=== PATIENT | male | born 1975 | race Hispanic/Latino ===

== ENCOUNTER → 2019-11-23 14:56 | Outpatient (CLI) | payer OTHER, SELFPAY ==
[2019-11-26 15:46] LABS: COVID19 Sendout Not Detected (Not Detect)
== END ==
PROVIDERS: PCP Family Medicine; Visit Provider Physician Assistant
DX: Z11.59 Encounter for screening for other viral diseases (principal)
CPT/HCPCS: 87635

== ENCOUNTER 2019-11-26 09:29 | Day surgery (SDC) | payer OTHER, SELFPAY ==
[2019-11-26] VITALS (7 sets, daily range): BP systolic 95–125; BP diastolic 54–77; PULSE 67–82; RESP 11–16; TEMP 36.6–36.9; O2SAT 95–99; BMI 25.2
[2019-11-26] MEDS: LACTATED RINGERS 1,000 ML 200 ML IV (09:45)
--- NOTE | 2019-11-26 10:15 | PM.HP.1 ---
History of Present Illness History of Present Illness Date Patient Seen: 11/26/19 Time Patient Seen: 10:15 Chief complaint: SDC Narrative: The patient is a gentleman whose father of colon cancer at age 47. He is here for a screening exam. His last exam was 5 years ago. This is his 3rd colonoscopy. Patient History Surgical History (Updated 11/26/19 @ 10:16 by Omid Childs MD) Status post inguinal hernia repair (Acute) Family & Social History Social History: household members spouse Tobacco & Substance use: Smoking Status Never smoker alcohol intake never Substance Use Type does not use Meds Home Medications and Allergies Home Medications Medication Instructions Recorded Confirmed Type ibuprofen 600 mg PO PRN PRN #0 04/18/16 History lidocaine 1 tino TOPICAL TID #30 gm 04/18/16 11/26/19 Rx gabapentin [Neurontin] 300 mg PO TID #90 cap 07/15/16 Rx Allergies Allergy/AdvReac Type Severity Reaction Status Date / Time No Known Allergies Allergy Verified 11/26/19 07:35 Review of Systems Review of Systems Narrative: He has had 2 urinary tract infections in the past. He is otherwise healthy. ROS: Yes All systems reviewed with the patient and are negative except as otherwise documented Exam Vital Signs (past 8 hours): - 11/26/19 10:04 Temperature 98.4 F Pulse Rate 82 Respiratory Rate 14 Blood Pressure 125/77 Pulse Oximetry 99 Oxygen Delivery Method Room Air Narrative Exam Narrative: Pleasant cooperative patient no apparent distress. Lungs are clear to auscultation. No rales or rhonchi. Heart regular rate and rhythm no murmur gallop. Abdomen is soft nontender without mass. No obvious hernias. Patient is alert and oriented x3. Assessment & Plan Assessment & Plan narrative: The patient for a screening colonoscopy. I have discussed the procedure with them. Risks of bleeding, perforation which would necessitate major operation, failure to find remove all lesions, the potential tattoo were all discussed. All questions were answered. They wished to proceed.
--- NOTE | 2019-11-26 10:16 | PM.PREOP ---
Pre-operative Note COVID-19 COVID-19 status: Negative Result date/Date tested (Pos, Neg/Pending): 11/26/19 Interval Note History & Physical reviewed/Exam performed by Physician: Yes Changes to H&P: No ASA Class (for procedural sedation): I
[2019-11-26 10:21] LABS: COVID19 -Nasal RAPID Negative (Negative)
[2019-11-26] MEDS: MIDAZOLAM 5 MG/5 ML VIAL IV (10:47)
[2019-11-26] MEDS: fentaNYL 250 MCG/5 ML INJ IV (10:48)
--- NOTE | 2019-11-26 11:10 | PM.OP.ENDO ---
Operative Date/Time/Diagnoses Date of procedure: 11/26/19 Time of procedure: 11:10 Pre-op diagnosis: Father with colon cancer at age 47. Here for screening exam. This is his 3rd colonoscopy. Last exam was 5 years ago. Post-op diagnosis: same (Normal exam) Procedure & Clinicians Study performed: Colonoscopy Same procedure as scheduled: Yes Indications: Screening Surgeon: Omid Childs Procedure Notes SCOAP/Timeout: Performed Procedure in detail: The patient was placed in the left lateral decubitus position and underwent IV sedation directed by the surgeon consisting of fentanyl and Versed. Digital exam was unremarkable. Prostate is normal in size.. The scope was inserted and advanced through the rectum into the sigmoid, descending, transverse, and ascending colon. The patient had a lot of fluid in the colon but I was able to suck it out. He also had a rather elongated tortuous colon and we had to reposition him, insert a stiffener and apply pressure to his abdominal wall to reach the cecum. The cecum was reached identified by the ileocecal valve and the appendiceal opening. The scope was gradually brought out. No Polyps were found. The scope ultimately was retroflexed in the rectum. The appearance was normal. The scope was removed and the patient tolerated the procedure well. All the prep was ultimately good. Scope withdrawal time: 8 minutes Sedation minutes: 37 Specimen(s): none sent Complications: none Post-procedure Recommendations: Colonscopy in 5 years (Due to family history) Follow up: as needed Disposition: PACU
== END 2019-11-26 12:00 | disposition home or self-care (01) ==
PROVIDERS: PCP Family Medicine; Referring Provider Family Medicine; Visit Provider Specialist
PROC: 0DJD8ZZ Inspection of Lower Intestinal Tract, Via Natural or Artificial Opening Endoscopic (ICD-10-PCS; CPT 45378; principal; 2019-11-26 10:45)
DX: Z12.11 Encounter for screening for malignant neoplasm of colon (principal); Z80.0 Family history of malignant neoplasm of digestive organs; Z11.59 Encounter for screening for other viral diseases
CPT/HCPCS: 45378; 87635; 99152; 99153; J2250; J3010

== ENCOUNTER → 2021-02-01 09:04 | Outpatient (CLI) | payer OTHER, SELFPAY ==
[2021-02-01 12:01] LABS: COVID19 -Nasal RAPID Negative (Negative)
== END ==
PROVIDERS: PCP Family Medicine; Visit Provider Physician Assistant
DX: Z01.812 Encounter for preprocedural laboratory examination (principal); Z20.822 Contact with and (suspected) exposure to COVID-19
CPT/HCPCS: 87635

== ENCOUNTER 2021-02-04 09:07 | Day surgery (SDC) | payer OTHER, SELFPAY ==
[2021-01-28 10:52] VITALS: BMI 26.6
[2021-02-04] VITALS (7 sets, daily range): BP systolic 125–144; BP diastolic 78–96; PULSE 64–77; RESP 12–19; TEMP 35.9–36.9; O2SAT 98–100; BMI 26.6
--- NOTE | 2021-02-04 | PATH_ITS ---
[facility] Accession Number: [id number] . 01 Material submitted: . foreskin - FORESKIN . 01 Diagnosis: Foreskin, Circumcision: Patchy lichenoid dermatitis with areas of superficial collagen homogenization and dilated blood vessels; see comment. MRV 02/10/2021 0932 Local . 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 A PAS fungal stain performed on block A1 is negative for fungal organisms. Clinical correlation is recommended. . 01 Electronically signed: . Camilo Pereira MD, Dermatopathologist NPI- [id number] . 01 Gross description: . The specimen is received in formalin, labeled foreskin and consists of a 5.0 x 3.0 x 2.5 cm al wrinkled skin. The margin is inked blue and artist representative sections are submitted in cassettes A1-A2. ([id number]) /MRV 02/05/2021 1500 Local . 01 Pathologist provided ICD-10: L90.0 . 01 CPT . 781474, [id number] Performed at: 01 [facility] [address] [place] [address], [place], [place] [id number] MD Bandar Moran MD Phone: [phone]
[2021-02-04] MEDS: LACTATED RINGERS 1,000 ML 42 ML IV ×2 (09:38→10:53)
--- NOTE | 2021-02-04 09:54 | PM.PREOP ---
Pre-operative Note COVID-19 COVID-19 status: Negative Result date/Date tested (Pos, Neg/Pending): 02/01/21 Interval Note History & Physical reviewed/Exam performed by Physician: Yes Changes to H&P: No
[2021-02-04] MEDS: CEFAZOLIN 1 GM VIAL 2 GM IV (10:00)
--- NOTE | 2021-02-04 10:29 | SUR.OPER ---
Supine on padded OR bed, head on pillow, arms secured on padded arm boards at <90 degrees abduction, legs uncrossed, safety belt at thigh, tape over blanket over lower legs.
[2021-02-04] MEDS: BACITRACIN 28 GM OINT 1 APPLIC TOP (10:35)
[2021-02-04] MEDS: BUPIVACAINE 0.25% (PF) VIAL 30 ML INJ (10:35)
--- NOTE | 2021-02-04 11:05 | PM.OP.1 ---
Procedure & Clinicians Procedure: Circumcision Same procedure as scheduled: Yes Indications: This is a very pleasant 45-year-old male who came with complaint of abnormalities of the foreskin he was found to have phimosis. Also history of balanitis. He also has Mild Bx so at the meatus. Because the phimosis and balanitis he presents this time for circumcision. Surgeon: Chuy Helm Click Yes if Unassisted: Yes Anesthesia Type: General Operative Notes Findings: Patient has a tight 5 Modic ring which is blanched and scar with no cracking today. He has blanching around the meatus consistent with Bx 0. No other abnormalities noted. Closure Type: primary Specimen(s): other (Foreskin) Prosthetic devices, grafts, tissues, transplants, or devices: None Estimated Blood Loss (mL): 10 Blood products transfused: none Procedure in detail: Procedure in detail: After informed consent was obtained, patient was identified and brought to the operating room for a was placed in a supine position on the table. After being placed on the operative table anesthesia was induced and maintained. Patient was then shaved, prepped, draped and prepared for circumcision in a sterile fashion. After prepping, draping and ensuring an adequate level of anesthesia the line of circumcision on the sac scan was marked with a pen the foreskin was retracted and the subcoronal line of incision was marked and incised circumferentially. The foreskin was then and the shaft skin was incised. Obvious blood vessels were controlled with electrocautery. The dorsal midline the sleeve of skin was undermined from the coronal incision to the shaft incision. The skin was then removed the sleeve of skin was then removed with electrocautery. Points of bleeding were controlled with electrocautery. Skin edges were then reapproximated with interrupted 3-0 chromic gut suture. Skin was infiltrated with 0.25% Marcaine circumferentially dressings Xeroform bacitracin were applied. Patient was awakened having tolerated the procedure well. Patient to follow up my office in approximately 10-14 days. The skin was forwarded to pathology for pathologic examination. There were no complications Complications: none Post-operative Condition: stable Disposition: PACU Plan for aftercare: Patient follow-up in my office in 10-14 days
== END 2021-02-04 12:15 | disposition home or self-care (01) ==
PROVIDERS: PCP Family Medicine; Referring Provider Urology; Visit Provider Urology
PROC: (CPT 54161; principal; 2021-02-04 10:45)
DX: N47.1 Phimosis (principal); N48.0 Leukoplakia of penis; Z87.438 Personal history of other diseases of male genital organs; L90.0 Lichen sclerosus et atrophicus
CPT/HCPCS: 54161; J0690; J1100; J2405; J2704; J3010

== ENCOUNTER → 2021-11-08 14:29 | Outpatient (CLI) | payer OTHER, SELFPAY ==
[2021-11-08 15:41] LABS: Prostate Specific Antigen 0.769 ng/mL (0.10-4.00)
== END ==
PROVIDERS: PCP Family Medicine; Referring Provider Urology; Visit Provider Urology
DX: R35.1 Nocturia (principal)
CPT/HCPCS: 36415; 84153

== ENCOUNTER 2023-04-08 15:01 | Emergency (ER) | payer OTHER, SELFPAY ==
[2023-04-08 15:05] VITALS: BP 127/84; PULSE 84; RESP 14; TEMP 36.6; O2SAT 98; BMI 27.3
[2023-04-08] MEDS: LIDOCAINE 5% PATCH 1 EACH TOP (16:50)
[2023-04-08 16:59] LABS: Urine Volume 10mL (spun)
[2023-04-08] MEDS: TRAMADOL 50 MG TABLET PO (17:18)
[2023-04-08 17:22] VITALS: BP 138/83; PULSE 82; RESP 18; O2SAT 98
--- NOTE | 2023-04-08 17:37 | ED_ITS ---
HPI - Back Pain/Injury <Kassandra Potts PA-C - Last Filed: 04/08/23 18:40> General Chief Complaint: Back Pain/Injury Stated Complaint: Back pain Time Seen by Provider: 04/08/23 15:31 Source: patient History of Present Illness HPI Narrative: 47-year-old male here in the emergency department for low back pain for 2 weeks. States he recalls lifting a heavy potted plant earlier that day and the pain started later on. States the pain is worse at night when he is trying to switch positions while sleeping. He seen at a walk-in clinic last week and given a shot of Toradol and baclofen 10 mg prescription, neither of which are effective. He denies radiation to the legs, numbness, tingling, weakness. He denies bowel or bladder incontinence. He does have a history of acute prostatitis and worried that he could be having either case that. He reports some urinary frequency but otherwise no urinary symptoms. No flank pain. No fevers or chills. States he was able to get through his work day without much pain but then when he lays down to sleep at night the pain gets much worse. Related Data Allergies Allergy/AdvReac Type Severity Reaction Status Date / Time No Known Allergies Allergy Verified 04/08/23 15:05 Review of Systems <Kassandra Potts PA-C - Last Filed: 04/08/23 18:40> Review of Systems ROS Unobtainable: All systems reviewed & are unremarkable except as noted in HPI and below Patient History <Kassandra Potts PA-C - Last Filed: 04/08/23 18:40> Medical History (Updated 04/08/23 @ 18:32 by Kassandra Potts PA-C) Nocturia more than twice per night BXO (balanitis xerotica obliterans) History of balanitis Acquired phimosis of penis Hx of migraines Hx of gout Surgical History (Updated 07/08/21 @ 15:52 by Chuy Helm MD) H/O circumcision Hx of inguinal hernia repair Status post inguinal hernia repair Family History Father Cancer Mother Diabetes mellitus Social History household members: spouse Smoking Status: Never smoker alcohol intake: never Type(s) of exercise: none Smoking Status: Never smoker alcohol intake frequency: holidays/special occasions only Substance Use Type: does not use Exam <Kassandra Ptots PA-C - Last Filed: 04/08/23 18:40> Narrative Exam Narrative: GENERAL: Well-developed, well-nourished, appears stated age. In no acute distress but obviously uncomfortable. HEAD: Atraumatic. Normocephalic. EYES: Pupils equal round and reactive. Extraocular motions intact. No scleral icterus. No injection or drainage. ENT: Nose without bleeding, purulent drainage. Airway patent. NECK: Trachea midline. Non tender RESPIRATORY: Respiratory rate and effort normal EXTREMITIES: No edema or joint tenderness. BACK: Spine is nontender with no deformities or step-offs. NEURO: AOx3. Normal sensation and strength in lower extremities. No footdrop. Able to ambulate but clear discomfort. Limited range of motion due to discomfort. SKIN: No rash or erythema of visible areas Initial Vital Signs Initial Vital Signs: Vital Signs Temperature 97.8 F 04/08/23 15:05 Pulse Rate 84 04/08/23 15:05 Respiratory Rate 14 04/08/23 15:05 Blood Pressure 127/84 04/08/23 15:05 Pulse Oximetry 98 04/08/23 15:05 Oxygen Delivery Method Room Air 04/08/23 15:05 <Lynette Nolan MD - Last Filed: 04/08/23 18:46> Initial Vital Signs Initial Vital Signs: Vital Signs Temperature 97.8 F 04/08/23 15:05 Pulse Rate 84 04/08/23 15:05 Respiratory Rate 14 04/08/23 15:05 Blood Pressure 127/84 04/08/23 15:05 Pulse Oximetry 98 04/08/23 15:05 Oxygen Delivery Method Room Air 04/08/23 15:05 Course <Kassandra Potts PA-C - Last Filed: 04/08/23 18:40> Orders Ordered: ED Orders 04/08/23 16:45 Urine Microscopic Stat Discontinued Medications Hydrocodone Bitart/Acetaminophen (Hydrocodone/Acet 5/325 Tablet) 1 tab PO NOW ONE Stop: 04/08/23 16:46 Last Admin: 04/08/23 17:23 Dose: Not Given Documented By: ANDREI Lidocaine (Lidocaine 5% Patch) 1 each TOP NOW ONE Stop: 04/08/23 16:45 Last Admin: 04/08/23 16:50 Dose: 1 each Documented By: ANDREI Tramadol HCl (Tramadol 50 Mg Tablet) 50 mg PO NOW ONE Stop: 04/08/23 16:59 Last Admin: 04/08/23 17:18 Dose: 50 mg Documented By: ANDREI Vital Signs Vital signs: Vital Signs - 8 hr 04/08/23 15:05 04/08/23 17:22 04/08/23 18:35 Temperature 97.8 F Pulse Rate 84 82 80 Respiratory Rate 14 18 16 Blood Pressure 127/84 138/83 119/84 Pulse Oximetry 98 98 97 Oxygen Delivery Method Room Air Room Air Room Air <Lynette Nolan MD - Last Filed: 04/08/23 18:46> Orders Ordered: ED Orders 04/08/23 16:45 Urine Microscopic Stat Discontinued Medications Hydrocodone Bitart/Acetaminophen (Hydrocodone/Acet 5/325 Tablet) 1 tab PO NOW ONE Stop: 04/08/23 16:46 Last Admin: 04/08/23 17:23 Dose: Not Given Documented By: ANDREI Lidocaine (Lidocaine 5% Patch) 1 each TOP NOW ONE Stop: 04/08/23 16:45 Last Admin: 04/08/23 16:50 Dose: 1 each Documented By: ANDREI Tramadol HCl (Tramadol 50 Mg Tablet) 50 mg PO NOW ONE Stop: 04/08/23 16:59 Last Admin: 04/08/23 17:18 Dose: 50 mg Documented By: ANDREI Vital Signs Vital signs: Vital Signs - 8 hr 04/08/23 15:05 04/08/23 17:22 04/08/23 18:35 Temperature 97.8 F Pulse Rate 84 82 80 Respiratory Rate 14 18 16 Blood Pressure 127/84 138/83 119/84 Pulse Oximetry 98 98 97 Oxygen Delivery Method Room Air Room Air Room Air MDM - Back Pain/Injury <Kassandra Potts PA-C - Last Filed: 04/08/23 18:40> Lab Data Labs: Lab Results 04/08/23 Range/Units 16:45 Urine RBC None seen (0-5/HPF) Urine WBC None seen (0-5/HPF) Ur Squamous Epith Cells 0-1 /hpf (0-5/HPF) Urine Bacteria None seen (None) Ur Culture Indicated? Cult not indicated Vol Urine Centrifuged 10ml (spun) MDM Narrative Medical decision making narrative: Patient here for acute low back pain x2 weeks. He recalls lifting a heavy pot at plant earlier in the day and the pain started later that evening. Most of his pain occurs in the evening and at night when trying to sleep. He has been trying to take baclofen 10 mg twice daily and ibuprofen 400 mg twice daily which is not helping. On exam he has no spinal deformities or step-offs or pinpoint tenderness. He has no neurologic deficits. He has a normal exam of the lower extremities with no sensation or motor deficits. He is clearly uncomfortable in his symptoms are consistent with a muscle spasm. He was given tramadol 50 mg in the ED (he declined [place]) and a lidocaine patch which he states helped somewhat. He does not really want to make any medication changes at this time. He would like to try taking 20 mg of baclofen at night. He is also under dosing on ibuprofen sore informed him he could take 600 mg every 6-8 hours or switch to Aleve to see if that helps more. Recommend heat and doing gentle range of motion and stretching. Overall this patient has no evidence of neurologic dysfunction or an urgent etiology of his back pain. Urinalysis was normal. This is not consistent with prostatitis or kidney stone. Recommend patient fol low up with PCP if not improving in 1-2 more weeks. ER return precautions were discussed. <Lynette Nolan MD - Last Filed: 04/08/23 18:46> Lab Data Labs: Lab Results 04/08/23 Range/Units 16:45 Urine RBC None seen (0-5/HPF) Urine WBC None seen (0-5/HPF) Ur Squamous Epith Cells 0-1 /hpf (0-5/HPF) Urine Bacteria None seen (None) Ur Culture Indicated? Cult not indicated Vol Urine Centrifuged 10ml (spun) Discharge Plan Departure Patient Disposition: Home Clinical Impression: Acute back pain Instructions: DI for Low Back Pain, DI for Back Spasm Activity Restrictions/Additional Instructions: You were seen today for low back pain. You are not having any symptoms that indicate something more urgent is happening so imaging of your back is not warranted today. You did have a urine test done which showed no signs of infection. It is likely that your back pain is due to a muscle spasm. I recommend taking ibuprofen 600 mg every 6-8 hours or a 1 Naproxen (Aleve) every 12 hours. You may also use lidocaine patches as needed for pain. I recommend continuing the baclofen that you were already prescribed. Please apply heating pad to your low back and do gentle stretching and [id number] exercises. If you do not improve in the next 2 weeks please follow up with her primary care physician to discuss the next step which may include physical therapy or other treatment options. Referrals: Jorge West MD [Primary Care Provider] - Stand Alone Forms: Patient Portal/API, Work Release Note ED Sign-out <Lynette Nolan MD - Last Filed: 04/08/23 18:46> Cosign ED Attending Cosignature Attestation: I did not see this patient. I was available all times for consultation.
[2023-04-08 18:16] LABS: Bacteria Urine None Seen; RBC Urine None Seen (0-5/HPF); WBC Urine None Seen (0-5/HPF)
[2023-04-08 18:17] LABS: Culture Indicated Urine Cult Not Indicated; Squamous Epithelial Cell Urine 0-1 /HPF (0-5/HPF)
[2023-04-08 18:35] VITALS: BP 119/84; PULSE 80; RESP 16; O2SAT 97
== END 2023-04-08 18:40 | disposition home or self-care (01) ==
PROVIDERS: Emergency Provider Physician Assistant; PCP Family Medicine
DX: M54.50 Low back pain, unspecified (principal)
CPT/HCPCS: 81015; 99283

== ENCOUNTER 2025-01-23 08:20 | Day surgery (SDC) | payer OTHER, SELFPAY ==
--- NOTE | 2025-01-23 06:35 | P.HP_ITS ---
History of Present Illness
--- NOTE | 2025-01-23 06:35 | PM.HP.IH.1 ---
History of Present Illness History of Present Illness Date Patient Seen: 01/23/25 Time Patient Seen: 06:35 Chief complaint: Colonoscopy Narrative: 49yo M presents for screening colonoscopy today. [facility] Medical History (Updated 01/23/25 @ 06:35 by Robby Viveros MD) Right lower quadrant pain Prostatitis Nocturia more than twice per night BXO (balanitis xerotica obliterans) History of balanitis Acquired phimosis of penis Hx of migraines Hx of gout Surgical History (Updated 07/08/21 @ 15:52 by Chuy Helm MD) H/O circumcision Hx of inguinal hernia repair Status post inguinal hernia repair Family History Father Cancer Mother Diabetes mellitus Social History household members: spouse alcohol intake: never Type(s) of exercise: none Meds Home Medications and Allergies Home Medications ?Medication ?Instructions ?Recorded ?Confirmed ?Type meloxicam 7.5 mg tablet 7.5 mg PO DAILY PRN back pain 04/25/24 05/21/24 History sulfamethoxazole 800 1 tab PO BID #84 tabs 04/25/24 05/21/24 Rx mg-trimethoprim 160 mg tablet (Bactrim DS) sodium,potassium,mag sulfates 17.5 See Rx Instructions PO .COMPLEX 12/23/24 Rx gram-3.13 gram-1.6 gram oral soln #354 mL (Suprep Bowel Prep Kit) Allergies Allergy/AdvReac Type Severity Reaction Status Date / Time No Known Allergies Allergy Verified 05/21/24 16:05 Exam Narrative Exam Narrative: Const General: healthy appearing, comfortable and no acute distress Orientation: alert and oriented x3 HENMT Ears: hearing grossly normal bilaterally Eyes Visual Kapoor: normal visual kapoor by confrontation Conjunctivae: conjunctivae normal Sclera: sclerae normal EOM: EOM intact bilaterally Resp Effort & Inspection: normal respiratory effort and able to speak in complete sentences Cardio Rate: regular rate GI Palpation: soft (NT) Extrem General: no pedal edema and no calf tenderness Assessment & Plan Assessment and plan (1) Encounter for screening colonoscopy: Status: Acute Plan Plan screening colonoscopy, possible biopsy. The risks, benefits and options regarding the procedure were explained to the patient in detail. Risk discussion included but not limited to: bleeding, perforation, missed le.bmwnsion, unable to reach cecum. The patient was encouraged to ask questions and they were answered to their satisfaction. The patient understands and is agreeable to proceed. Time-Based Coding :: [TOTAL MINUTES] spent with patient and on the chart (including review of chart, obtaining history, exam, reviewing outside data, placing orders, documenting exam and treatment plan, and counseling patient) on [DATE]. [employer]EE [employer] Document charge(s): Yes Charge Codes Inpatient/observation care including admit and discharge same day: [id number]
[2025-01-23 09:45] VITALS: BP 137/85; PULSE 93; RESP 16; TEMP 36.1; O2SAT 99
[2025-01-23] MEDS: LACTATED RINGERS 1,000 ML 42 ML IV (09:45)
--- NOTE | 2025-01-23 10:52 | P.OP.COLON_ITS ---
Operative Date/Time/Diagnoses
--- NOTE | 2025-01-23 10:52 | PM.OP.COLON ---
Operative Date/Time/Diagnoses Date of procedure: 01/23/25 Time of procedure: 11:12 Pre-op diagnosis: Screening colonoscopy Post-op diagnosis: same Procedure & Clinicians Study performed: Screening colonoscopy Same procedure(s) as scheduled: Yes Indications: 49yo M, screening colonoscopy, h/o polyps Surgeon: Robby Viveros Anesthesia Type: MAC +/- Procedure Notes SCOAP/Timeout: Performed Procedure in detail: Colonoscopy Patient placed in left lateral recumbent position. Time out was performed. Procedural sedation was administered by anesthesia. Examination began with a thorough inspection of the perianal area. There was no evidence of fissures, fistulae, external hemorrhoids or cutaneous malignancy. The colonoscope was then placed into the rectum and the lumen was insufflated with carbon dioxide. The scope was carefully advanced forward. Ultimately the cecum was intubated and confirmed by identification of the ileocecal valve, the appendiceal orifice and the confluence of the taenia. The scope was then slowly withdrawn examining the colon thoroughly in all directions. In the rectum, retroflexion of the scope was performed for inspection of the distal rectum and anal canal. ?Significant colonoscopy findings: ?1. Quality of the preparation-good, Waddy 2-3, improved with irrigation/suction ?2. Normal screening colonoscopy today, no polyps Scope withdrawal time: 6 minutes Specimen(s): none sent Estimated Blood Loss: 5 Complications: none Post-procedure Recommendations: Colonoscopy in 5 years Plan for aftercare: PACU then home Follow up: as needed Disposition: PACU
[2025-01-23 11:10] VITALS: BP 98/57; PULSE 65; RESP 16; O2SAT 98
[2025-01-23 11:14] VITALS: BP 98/54; PULSE 66; RESP 16; TEMP 36.2; O2SAT 98
[2025-01-23 11:19] VITALS: BP 95/65; PULSE 80; RESP 16; TEMP 36.2; O2SAT 98
== END 2025-01-23 11:31 | disposition home or self-care (01) ==
PROVIDERS: PCP Family Medicine; Referring Provider Family Medicine; Visit Provider Surgery
PROC: 0DJD8ZZ Inspection of Lower Intestinal Tract, Via Natural or Artificial Opening Endoscopic (ICD-10-PCS; CPT 45378; principal; 2025-01-23 09:45)
DX: Z12.11 Encounter for screening for malignant neoplasm of colon (principal); Z86.0100 Personal history of colon polyps, unspecified
CPT/HCPCS: 45378; J2704; J7120